=== PATIENT | male | born 1965 | race African-American/Black ===

== ENCOUNTER 2021-05-24 13:42 | Emergency (ER) | payer OTHER, SELFPAY ==
[2021-05-24 13:48] VITALS: BP 137/89; PULSE 56; RESP 16; TEMP 36.6; O2SAT 100
--- NOTE | 2021-05-24 13:48 | ED.EAR ---
HPI - Ear Problem General Chief complaint: Ear Stated complaint: EARACHE Time Seen by Provider: 05/24/21 13:54 Source: patient and RN notes reviewed Mode of arrival: ambulatory Limitations: no limitations History of Present Illness HPI Narrative: 56-year-old male presents concern for left ear pain that started yesterday. He denies rhinorrhea, nasal congestion, sore throat, fever, drainage from the ear. Denies any history of ear infections. He reports also mild pain to the left side of his face. Denies any bumps, abscesses, dental pain. Denies any jaw pain or clicking. MD Complaint: ear pain Related Data Home Medications Medication Instructions Recorded Confirmed dorzolamide-timolol 05/24/21 latanoprost drp 05/24/21 Allergies Allergy/AdvReac Type Severity Reaction Status Date / Time No Known Allergies Allergy Verified 05/24/21 13:47 Review of Systems Review of Systems: Narrative: CONSTITUTIONAL: Denies malaise, chills, sweats, or fever. EYES: Denies visual changes, redness, or discharge. ENT: Denies rhinorrhea, congestion, sinus pain, and sore throat. Reports left ear pain, denies drainage CARDIOVASCULAR: Denies chest pain, palpitations, or edema. RESPIRATORY: Denies cough or dyspnea. GASTROINTESTINAL: Denies abdominal pain, nausea, vomiting, diarrhea SKIN: Denies rash or itching. MUSCULOSKELETAL: Denies myalgia. NEUROLOGIC: Denies headache. All systems reviewed & are unremarkable except as noted in HPI and below PMFSH Family History Family History (Updated 07/29/16 @ 15:31 by DOCTOR UNKNOWN) Father Malignant neoplasm of prostate Social History Social History Smoking status: Never smoker Alcohol intake: current Comments At time of signature, agree with nursing past medical, surgical, social and family history. There is no relevant family history pertinent to the presenting complaint Exam Narrative: Exam Narrative: GENERAL: Well-appearing, well-nourished, and in no acute distress. HEAD: Normocephalic EYES: PERRLA, conjunctivae clear ENT: Nares clear, turbinates pink, no. Mucous membranes moist. TM pearly fontenot with sharp light reflex bilaterally; no tragal tenderness. Oropharynx not erythematous without lesions. Tonsils not enlarged and without exudate, no drooling, no hoarseness, no trismus, uvula midline. NECK: Supple. No lymphadenopathy CHEST: Clear to auscultation, breath sounds equal. No wheezing, rhonchi, rales, or stridor. No respiratory distress, speaks in full sentences. HEART: Regular rate and rhythm. No murmur heard. SKIN: Warm, dry, no rash. NEURO: Alert and oriented x3. PSYCH: Normal mood and affect Course Course Emergency Course: Patient is aware of diagnosis, understands and agrees to treatment plan. Anticipatory guidance given. Patient agrees to follow-up as directed and is aware of reasons to seek care at the emergency department. Portions of this record may have been created with voice recognition software Vital Signs Vital signs: Reviewed. Medical Decision Making MDM Narrative Medical decision making narrative: Differential diagnosis considered: [place] virus, strep pharyngitis, allergic rhinitis, upper respiratory tract infection, sinusitis, rhinosinusitis, nasopharyngitis. viral pharyngitis, otitis media, otitis externa, eustachian tube dysfunction, viral syndrome, and influenza. Exam findings show no acute concerns or changes; patient is non-toxic appearing and is in no distress. Patient is appropriate for outpatient treatment and follow-up. Critical Care Time Critical Care Time Critical Care Time: No Discharge Plan Discharge Clinical Impression: Earache on left Patient Disposition: Home, Self-Care Condition: Stable Instructions: Fluid In The Ear (Serous Otitis Media) (ED) Additional Instructions: Recommend antihistamine such as Benadryl at night time and Zyrtec or Sabi during the day until symptoms improve Flonase nasal spray, 2 sprays in each
== END 2021-05-24 14:08 | disposition home or self-care (01) ==
PROVIDERS: Emergency Provider Nurse Practitioner; PCP Family Medicine
DX: H92.02 Otalgia, left ear (principal); H40.9 Unspecified glaucoma
CPT/HCPCS: 99203; G0463

== ENCOUNTER 2022-12-11 00:26 | Day surgery (SDC) | payer BC, SELFPAY ==
[2022-11-27 12:20] VITALS: BMI 24.9
[2022-12-11 09:05] VITALS: BP 139/85; PULSE 68; RESP 15; TEMP 36.4; O2SAT 100; BMI 24.6
[2022-12-11] MEDS: LACTATED RINGERS 1,000 ML 150 ML IV CONT (09:21)
--- NOTE | 2022-12-11 09:35 | P.PNAN_ITS ---
Anes - Initial Pre Proc Eval Procedure: Operation Date: 12/11/22 09:30 Proposed Procedures p Screening Colonoscopy - Deejay Menchaca MD Date/Time: 12/11/22 09:35 Surgeon: Deejay Menchaca MD Pre Op Diagnosis: neoplasm screening Patient Data Age: 57 Gender: M Height: 1.8 m Weight: 80.2 kg Last Vital Signs Temp 97.5 F L 12/11/22 09:05 Pulse 68 12/11/22 09:05 Resp 15 12/11/22 09:05 BP 139/85 12/11/22 09:05 Pulse Ox 100 12/11/22 09:05 O2 Del Method Room Air 12/11/22 09:05 Allergies Allergy/AdvReac Type Severity Reaction Status Date / Time No Known Allergies Allergy Verified 12/11/22 09:05 Home Medications Medication Instructions Recorded Confirmed Type dorzolamide 22.3 mg-timolol 6.8 1 drp EACH EYE BID 05/24/21 12/11/22 History mg/mL eye drops latanoprost 0.005 % eye drops 1 drp EACH EYE HS 05/24/21 12/11/22 History Patient hx anesthesia problems: none Family hx anesthesia problems: none Results Review: All pre-operative results and documents have been reviewed as part of the pre- operative evaluation. [facility] Family History Family History (Updated 07/29/16 @ 15:31 by DOCTOR UNKNOWN) Father Malignant neoplasm of prostate Social History Social History Smoking status: Never smoker Alcohol intake: current Drinks per week: 2 Substance use: current Substance use type: marijuana Other substance usage details: medical marijuana Spiritual care concerns: No Anes - Eval Final PreProcedure Day of Procedure 12/11/22 09:35 Patient weight: normal Heart: regular rate and rhythm Lungs: clear to auscultation Airway: Mallampati scale class II Neurological: alert and oriented Last oral intake: >/= 8 hours ASA classification: II Emergent: no Anesthetic plan: proceed Anesthesia type and monitoring: general GIVS and standard monitoring Results Review: All pre-operative results and documents have been reviewed as part of the pre- operative evaluation. Informed Consent: The patient's anesthetic plan and its attendant risks and benefits were discussed with the patient/family/POA. Questions were solicited and answers provided to the satisfaction of the patient/family/POA.
--- NOTE | 2022-12-11 09:50 | PM.HPGS ---
History of Present Illness History of Present Illness Consent: Risks, benefits, and alternatives have been discussed and questions answered. Patient agrees to proceed with procedure. Chief complaint: neoplasm screening Narrative: Mitchell Bernard is a 57 year old male here for screening colonoscopy, last one 10 years ago Review of Systems Constitutional: Constitutional: Denies headache(s) and Denies weakness Eyes: Eyes: Denies blurry vision ENT: Reports Normal hearing present, Denies headache(s) and Denies neck pain Cardiovascular: Cardiovascular: Denies chest pain and Denies dyspnea Respiratory: Respiratory: Denies dyspnea Gastrointestinal: Gastrointestinal: Reports no additional gastrointestinal complaints Genitourinary: Genitourinary: Denies dysuria Musculoskeletal: Musculoskeletal: Denies neck pain Integumentary/Breasts: Skin/Breast: Denies dry skin Neurologic: Reports Normal hearing present, Denies headache(s) and Denies weakness Psychiatric: Psychiatric: Denies anxiety Endocrine: Endocrine: Denies change in body appearance Hematologic/Lymphatic: Hematologic/Lymphatic: Denies easy bleeding Allergic/Immunologic: Allergic/Immunologic: Denies urticaria PMFSH Past Medical History Medical History (Updated 12/11/22 @ 09:50 by Deejay Menchaca MD) Colon cancer screening Family History Family History (Updated 07/29/16 @ 15:31 by DOCTOR UNKNOWN) Father Malignant neoplasm of prostate Social History Social History Smoking status: Never smoker Alcohol intake: current Drinks per week: 2 Substance use: current Substance use type: marijuana Other substance usage details: medical marijuana Spiritual care concerns: No Meds Home Medications and Allergies Home Medications Medication Instructions Recorded Confirmed Type dorzolamide 22.3 mg-timolol 6.8 1 drp EACH EYE BID 05/24/21 12/11/22 History mg/mL eye drops latanoprost 0.005 % eye drops 1 drp EACH EYE HS 05/24/21 12/11/22 History Allergies Allergy/AdvReac Type Severity Reaction Status Date / Time No Known Allergies Allergy Verified 12/11/22 09:05 Vital Signs Vital Signs - 24 hr 12/11/22 09:05 Temperature 97.5 F L Pulse Rate 68 Respiratory Rate 15 Blood Pressure 139/85 Pulse Oximetry 100 Oxygen Delivery Room Air Exam Const: General: comfortable and no acute distress HENMT: Face/Nose/Sinus: Normal nares present Eyes: General: appearance normal, both eyes and all related structures Neck: Neck: no JVD Resp: Auscultation: clear to auscultation bilaterally Cardio: Rate: regular rate Rhythm: regular rhythm GI: Inspection: non-distended GI Palp: Yes Soft to palpation Skin: General skin exam: normal color Neuro: General: gait normal Speech: normal speech Extrem: General: normal to inspection Psych: Mental Status: mental status grossly normal Assessment and Plan Assessment and plan (1) Colon cancer screening: Code(s): Z12.11 - Encounter for screening for malignant neoplasm of colon Status: Acute Assessment and Plan: colonoscopy
[2022-12-11 10:04] VITALS: BP 121/72; PULSE 68; RESP 15; O2SAT 100
[2022-12-11 10:14] VITALS: BP 114/76; PULSE 60; RESP 14; O2SAT 100
[2022-12-11 10:24] VITALS: BP 146/89; PULSE 60; RESP 21; O2SAT 100
== END 2022-12-11 10:31 | disposition home or self-care (01) ==
PROVIDERS: PCP Emergency Medicine; Visit Provider Internal Medicine Gastroenterology
PROC: 0DJD8ZZ Inspection of Lower Intestinal Tract, Via Natural or Artificial Opening Endoscopic (ICD-10-PCS; CPT 45378; principal; 2022-12-11 09:30)
DX: Z12.11 Encounter for screening for malignant neoplasm of colon (principal); K57.30 Diverticulosis of large intestine without perforation or abscess without bleeding; K64.8 Other hemorrhoids; F12.90 Cannabis use, unspecified, uncomplicated
CPT/HCPCS: 45378; J2704; J7120

== ENCOUNTER 2024-01-24 06:01 | Day surgery (SDC) | payer OTHER, SELFPAY ==
--- NOTE | 2024-01-24 07:23 | PM.IMHP ---
H&P: HPI History of Present Illness Date/Time: 01/24/24 07:23 Chief Complaint: chest wall mass Narrative: 58 yo man presents for excision of left chest wall mass. He denies any changes since last seen in office. Review of Systems Review of Systems: All systems reviewed & are unremarkable except as noted in HPI and below Constitutional: Constitutional: Denies chills, Denies fever(s), Denies headache(s) and Denies weight loss Eyes: Eyes: Denies change in vision ENT: Denies dizziness, Denies headache(s), Denies neck mass and Denies throat swelling Cardiovascular: Cardiovascular: Denies chest pain, Denies lightheadedness and Denies dyspnea Respiratory: Respiratory: Denies cough, Denies dyspnea and Denies wheezing Gastrointestinal: Gastrointestinal: Denies abdominal pain, Denies change in bowel habits, Denies nausea and Denies vomiting Genitourinary: Genitourinary: Denies hematuria and Denies dysuria Musculoskeletal: Musculoskeletal: Reports as per HPI Integumentary/Breasts: Skin/Breast: Reports as per HPI Neurologic: Denies dizziness and Denies headache(s) Allergic/Immunologic: Allergic/Immunologic: Denies throat swelling and Denies wheezing [facility] Past Medical History Medical History Colon cancer screening Family History Family History Father Malignant neoplasm of prostate Social History Social History Smoking status: Never smoker Alcohol intake: current Drinks per week: 2 Alcohol use details: 0.5-1 bottle of wine weekly Substance use: current Substance use type: marijuana Other substance usage details: medical marijuana Spiritual care concerns: No Meds Home Medications and Allergies Home Medications Medication Instructions Recorded Confirmed Type dorzolamide 22.3 mg-timolol 6.8 1 drp EACH EYE BID 05/24/21 01/10/24 History mg/mL eye drops latanoprost 0.005 % eye drops 1 drp EACH EYE HS 05/24/21 01/10/24 History valacyclovir 500 mg tablet 500 mg PO DAILY 12/13/23 01/10/24 History (Valtrex) Vitamin D3 1 tab-cap PO DIRECTED 01/10/24 01/10/24 History multivitamin 1 tablet PO DAILY 01/10/24 01/10/24 History vitamin E 1 tab-cap PO DIRECTED 01/10/24 01/10/24 History Allergies Allergy/AdvReac Type Severity Reaction Status Date / Time No Known Allergies Allergy Verified 01/10/24 13:06 Exam Const: General: no acute distress and alert Orientation/consciousness: patient oriented x3 HENMT: Head: normocephalic and atraumatic Ears: hearing grossly normal bilaterally Face/Nose/Sinus: Normal nares present Mouth: Yes Normal oral and palatal mucosa present Eyes: Periorbital: periorbital findings normal Sclera: sclerae normal EOM: EOMs intact bilaterally Neck: Neck: normal visual inspection, no lymphadenopathy and trachea midline Chest: Chest palpation & inspection: normal inspection of the chest Other: 5 cm left chest wall mass Resp: Effort & Inspection: normal respiratory effort Auscultation: clear to auscultation bilaterally Cardio: Jugular venous distension: no JVD Rate: regular rate Rhythm: regular rhythm Heart sounds: S1 normal heart sound present and S2 normal heart sound present Peripheral pulses: Peripheral pulses 2+ throughout GI: Inspection: normal to inspection GI Palp: Yes Soft to palpation, No Tenderness to palpation present (GI), No Guarding due to palpation present (GI) and No Rebound tenderness present Percussion: Yes normal to percussion Auscultation: normal bowel sounds : General: Yes no CVA tenderness Back/Spine/Pelvis: Back: no CVA tenderness Neuro: General: patient oriented x3, no focal motor deficits and CN's II-XI intact bilaterally Cognition (Neuro): normal cognition Speech: normal speech Motor exam (neuro): 5/5 motor strength present throughout Extr
--- NOTE | 2024-01-24 07:25 | WPDHPUPDATE1 ---
History and Physical Update Update Date/Time: 01/24/24 07:25 History and Physical has been reviewed, including an updated exam of the patient. There are NO changes in the patient's condition. Risks, benefits, and alternatives have been discussed and questions answered. Patient agrees to proceed with procedure.
[2024-01-24] MEDS: LACTATED RINGERS 1,000 ML 30 ML IV CONT (07:33)
--- NOTE | 2024-01-24 07:50 | WPDANESEPPF ---
Anes - Initial Pre Proc Eval Procedure: Operation Date: 01/24/24 07:30 Proposed Procedures p Excision 5cm Mass Left Chest Wall - Preston Smart DO Date/Time: 01/24/24 07:50 Surgeon: Preston Smart DO Pre Op Diagnosis: 5cm Left Chest Wall Mass Patient Data Age: 58 Gender: M Height: 1.8 m Weight: 85.45 kg Allergies Allergy/AdvReac Type Severity Reaction Status Date / Time No Known Allergies Allergy Verified 01/24/24 07:30 Home Medications Medication Instructions Recorded Confirmed Type dorzolamide 22.3 mg-timolol 6.8 1 drp EACH EYE BID 05/24/21 01/24/24 History mg/mL eye drops latanoprost 0.005 % eye drops 1 drp EACH EYE HS 05/24/21 01/24/24 History valacyclovir 500 mg tablet 500 mg PO DAILY 12/13/23 01/24/24 History (Valtrex) Vitamin D3 1 tab-cap PO DIRECTED 01/10/24 01/24/24 History multivitamin 1 tablet PO DAILY 01/10/24 01/24/24 History vitamin E 1 tab-cap PO DIRECTED 01/10/24 01/24/24 History Patient hx anesthesia problems: none Family hx anesthesia problems: none Results Review: All pre-operative results and documents have been reviewed as part of the pre-operative evaluation. [facility] Past Medical History Medical History Colon cancer screening Surgical History Surgical History (Updated 01/24/24 @ 07:50 by Ori Live MD) H/O colonoscopy Family History Family History Father Malignant neoplasm of prostate Social History Social History Smoking status: Never smoker Alcohol intake: current Drinks per week: 2 Alcohol use details: 0.5-1 bottle of wine weekly Substance use: current Substance use type: marijuana Other substance usage details: medical marijuana Spiritual care concerns: No Anes - Eval Final PreProcedure Day of Procedure 01/24/24 07:50 Patient weight: overweight Heart: regular rate and rhythm Lungs: clear to auscultation Airway: Mallampati scale class II Neurological: alert and oriented Last oral intake: >/= 8 hours ASA classification: II Emergent: no Anesthetic plan: proceed Anesthesia type and monitoring: general GIVS and standard monitoring Results Review: All pre-operative results and documents have been reviewed as part of the pre-operative evaluation. Informed Consent: The patient's anesthetic plan and its attendant risks and benefits were discussed with the patient/family/POA. Questions were solicited and answers provided to the satisfaction of the patient/family/POA.
[2024-01-24] MEDS: LIDO 1%/EPINEPHRINE 1:100,000 50 ML VIAL 20 ML INFILTRATE (08:27)
--- NOTE | 2024-01-24 08:52 | W.PM.PROC2 ---
Procedure Note - Detailed Date of Procedure 01/24/24 Pre-op Diagnosis 5cm Left Chest Wall Mass Post-op Diagnosis Same Procedure Performed excision of 5 cm left chest wall mass Surgeon Preston Smart, DO Anesthesia MAC and Local ( 1% lidocaine with epinephrine) Indications this is a 58-year-old man who presented with a mass on his left chest wall that had been present for several months. He was having some pressure and discomfort associated with it. Discussions were made with the patient about treatment options and decision was made to proceed with excision of the 5 cm left chest wall mass. Findings the 5 cm left chest wall mass was completely excised. It appeared to be a subcutaneous lipoma. No other abnormalities were noted in the lipoma was completely excised intact. The specimen was sent to the lab for pathology. Description of Procedure Procedure as well as risks, benefits, and alternatives were discussed with the patient. Written consent was obtained and placed in chart prior to procedure. Patient was brought back to surgical suite. He was placed supine on operating table. Time-out was done to confirm patient and procedure. IV sedation was then administered by the anesthesia department. His left chest area was prepped and draped in sterile fashion using chlorhexidine prep. 1% lidocaine with epinephrine was infiltrated locally around the mass. A 5 cm transverse incision was then made directly over the mass using a 15 blade scalpel. Electrocautery was used for hemostasis and for dissection through the subcutaneous tissue. The mass was completely excised from the surrounding subcutaneous attachments using electrocautery. It was completely removed and sent to the lab for pathology. The wound bed was then inspected. Hemostasis was achieved with electrocautery. No other abnormalities were noted. The deep dermis was reapproximated using 3-0 Vicryl inverted interrupted sutures. The skin was approximated using 4-0 Monocryl running subcuticular suture. Exofin glue was applied on top. The patient was then awakened from anesthesia and transferred to recovery. Estimated Blood Loss 5 Pathology Yes (5cm left chest wall mass) Complications No immediate complications Condition Stable Disposition Same day [facility] Billing Surgery - Charge Forward: Surgery Billing
[2024-01-24 08:55] VITALS: BP 114/64; PULSE 74; RESP 16; O2SAT 98
[2024-01-24 09:05] VITALS: BP 114/64; PULSE 70; RESP 14; O2SAT 100
[2024-01-24 09:15] VITALS: BP 115/68; PULSE 60; RESP 14; O2SAT 100
[2024-01-24 09:25] VITALS: BP 115/68; PULSE 60; RESP 14; O2SAT 100
--- NOTE | 2024-01-24 09:33 | WPDANESPN ---
Anes - Prog Note Post-Op Date/Time: 01/24/24 09:33 Cardiovascular status: normal Airway patency: baseline Mental status: baseline Post-Op hydration status: normal Vital Signs: Last Vital Signs Pulse 60 01/24/24 09:25 Resp 14 01/24/24 09:25 BP 115/68 01/24/24 09:25 Pulse Ox 100 01/24/24 09:25 O2 Del Method Room Air 01/24/24 09:25 Pain Score (VAS): 0/10 I/O: Intake & Output 01/23/24 01/24/24 01/24/24 23:59 07:59 15:59 Intake Total 1000 Balance 1000 Patient Feedback: Patient satisfied with anesthetic care.
[2024-01-24 09:35] VITALS: PULSE 65; RESP 14; O2SAT 100
== END 2024-01-24 09:55 | disposition home or self-care (01) ==
PROVIDERS: PCP Emergency Medicine; Visit Provider Surgery
PROC: (CPT 21552; principal; 2024-01-24 07:30)
DX: D17.79 Benign lipomatous neoplasm of other sites (principal)
CPT/HCPCS: 21552

== ENCOUNTER 2024-01-24 07:00 | Outpatient (NON) | payer OTHER, SELFPAY | END 2024-01-24 07:01 | disposition home or self-care (01) | PROVIDERS: PCP Emergency Medicine; Visit Provider Surgery | DX: R22.2 Localized swelling, mass and lump, trunk (principal) | CPT/HCPCS: 88304 ==

== ENCOUNTER 2025-01-22 10:17 | Outpatient (CLI) | payer OTHER, SELFPAY | END 2025-01-22 10:18 | disposition home or self-care (01) | PROVIDERS: PCP Emergency Medicine; Visit Provider Emergency Medicine | DX: K40.90 Unilateral inguinal hernia, without obstruction or gangrene, not specified as recurrent (principal); R10.30 Lower abdominal pain, unspecified | CPT/HCPCS: 76700; 76882 ==